=== PATIENT | male | born 1970 | race Caucasian/White ===

== ENCOUNTER 2017-01-26 10:24 | Emergency (ER) | payer OTHER ==
--- NOTE | 2017-01-26 10:35 | CPEKG ---
Heart Rate: 68 RR Interval: 882 P-R Interval: 156 QRSD Interval: 82 QT Interval: 360 QTC Interval: 383 P [place]: 40 QRS [place]: 36 T Wave [place]: 38 EKG Severity - ABNORMAL ECG - EKG Impression: SINUS RHYTHM EKG Impression: ST ELEVATION SUGGESTS PERICARDITIS Electronically Signed By: Reginaldo Atkins 26-Jan-2017 12:14:19
[2017-01-26] MEDS ORDERED: ASPIRIN 81 MG CHEWABLE TAB PO ONE (11:06)
--- NOTE | 2017-01-26 11:09 | EDPHY ---
H & P Stated Complaint: Numbness tingling left hand/ lightheaded - Personal History Current Tetanus/Diphtheria Vaccine: Yes Current Tetanus Diphtheria and Acellular Pertussis (TDAP): Yes - Medical/Surgical History Hx Asthma: No Hx Chronic Respiratory Disease: No Hx Diabetes: No Hx Cardiac Disease: No Hx Renal Disease: No Hx Cirrhosis: No Hx Alcoholism: No Hx HIV/AIDS: No Hx Splenectomy or Spleen Trauma: No - Social History Smoking Status: Never smoked Time Seen by Provider: 01/26/17 11:00 HPI/ROS: CHIEF COMPLAINT: chest pain, dizziness HISTORY OF PRESENT ILLNESS: 46-year-old male drove himself to the emergency department states that less than 1 hour ago while eating breakfast he onset diaphoresis, dizziness, chest pain, left arm pain which lasted approximately 5- 10 minutes and has by and large resolved although he continues to complain of mild dizziness. No slurred speech. No gait instability. No back pain. Patient notes increasing stress with recent divorce from his . PRIMARY CARE PROVIDER: [facility] in [place], [place] REVIEW OF SYSTEMS: A ten point review of systems was performed and is negative with the exception of the items mentioned in the HPI PAST MEDICAL & SURGICAL HISTORY: hypertension. No history of [place] . SOCIAL HISTORY: Nonsmoker. Works construction. No Drug use, no cocaine use PHYSICAL EXAM (Prior to examination, patient consented to physical exam, hands were washed and my usual and customary physical exam procedures followed) 1) GENERAL: obese, alert and oriented. Appears anxious . 2) HEAD: Normocephalic, atraumatic 3) HEENT: Pupils equal, round, reactive to light bilaterally. Sclera anicteric. 4) NECK: Full range of motion, no Bruit. 5) LUNGS: Clear auscultation bilaterally, 6) HEART: Regular rate and rhythm, no murmur, no heave, no gallop. 7) ABDOMEN: No guarding, no rebound, no focal tenderness, negative McBurney's, negative Mcclain's, negative Rovsing's, unable to elicit any abdominal pain 8) MUSCULOSKELETAL: Moving all extremities, no focal areas of tenderness, no obvious trauma. No peripheral edema or discoloration. 9) BACK: No CVA tenderness 10) SKIN: No rash, no petechiae. 11) Psychiatric: Patient is oriented X 3, there is no agitation. 12) NEURO: Awake, alert, and oriented to person, place and time. Answers questions appropriately. There were no obvious focal neurologic abnormalities. No cerebellar dysfunction. Normal steady gait. Upper and lower extremities bilaterally with strength 5 / 5, reflexes 2+. DIFFERENTIAL DIAGNOSIS: In no particular order, including but not limited to myocardial ischemia, pulmonary embolus, chest wall pain, pleural inflammation and pulmonary infectious causes. (Shayy Hoang) Constitutional: Initial Vital Signs Temperature (C) 36.9 C 01/26/17 10:26 Heart Rate 76 01/26/17 10:26 Respiratory Rate 14 01/26/17 10:26 Blood Pressure 158/86 H 01/26/17 10:26 O2 Sat (%) 96 01/26/17 10:26 O2 Delivery Mode Room Air Allergies/Adverse Reactions: No Known Allergies Allergy (Unverified 01/26/17 10:25) Home Medications: Medication Instructions Recorded Lisinopril 01/26/17 METOPROLOL-HCTZ 100-25 MG TAB 01/26/17 Medical Decision Making - Diagnostics EKG Interpretation: EKG: Complete interpretation has been separately recorded in the [employer] archive. Summary impression: Sinus rhythm, nonspecific mild ST segment elevation noted throughout all leads (Reginaldo Atkins) ED Course/Re-evaluation: 11:09 a.m.: Old medical records reviewed via [facility], discussed case with Dr Atkins at this time who evaluated patient at this time. 1:30 p.m.: I reviewed the patient's normal echo. Phone consultation with Zaida Gutierrez, Cardiology, plan will be in house treadmill testing at 2:15 p.m. today 2:58 p.m.: Patient back from treadmill testing. I spoke with nurse practitioner Zaida Gutierrez regarding his normal treadmill testing. Plan will be discharge as both I and Dr. Reginaldo Atkins think that acute cardiac etiology or injury is less than likely in the presence 2 normal troponins, normal echocardiography, normal treadmill testing. Doubt pulmonary embolus. Plan will be discharge. Given strict return precautions. Given my usual and customary discharge precautions and instructions. He feels comfortable being discharged. (Shayy Hoang) Other Provider: I evaluated and participated in the management of the patient. I also evaluated the patient independently. My co-signature indicates that I have reviewed this chart and I agree with the findings and plan of care as documented. My personal H&P findings include: Patient presents to the ED with flushing, diaphoresis and a brief episode of chest pain and left arm tingling. The patient reports intermittent history of the symptoms in the past. He does have a history of hypertension. The patient reports an unremarkable stress test and echocardiogram approximately 2 years ago. He currently is asymptomatic. Physical examination General Appearance: Alert, no distress Eyes: Pupils equal and round no pallor or injection ENT, Mouth: Mucous membranes moist Respiratory: There are no retractions, lungs are clear to auscultation Cardiovascular: Regular rate and rhythm Gastrointestinal: Abdomen is soft and nontender, no masses, bowel sounds normal Neurological: A&O, normal motor function, normal sensory exam, normal cranial nerves Skin: Warm and dry, no rashes Musculoskeletal: Neck is supple nontender Extremities: symmetrical, full range of motion Psychiatric: Patient is oriented X 3, there is no agitation Plan will be for serial cardiac enzymes in the emergency department and echocardiogram. Serial EKGs demonstrate no evidence of acute dynamic changes Consultation was made with Cardiology service. The patient will be taken for a treadmill stress test for further evaluation of his symptoms today. The patient did have an unremarkable echocardiogram. (Reginaldo Atkins) - Data Points Laboratory Results: Laboratory Results 01/26/17 10:38 01/26/17 10:38 01/26/17 01/26/17 01/26/17 13:40 10:38 10:38 WBC 6.36 10^3/uL 10^3/uL (3.80-9.50) RBC 6.51 10^6/uL H 10^6/uL (4.40-6.38) Hgb 16.1 g/dL g/dL (13.7-17.5) Hct 51.7 % H % (40.0-51.0) MCV 79.4 fL L fL (81.5-99.8) MCH 24.7 pg L pg (27.9-34.1) MCHC 31.1 g/dL L g/dL (32.4-36.7) RDW 17.0 % H % (11.5-15.2) Plt Count 256 10^3/uL 10^3/uL (150-400) MPV 11.0 fL fL (8.7-11.7) Neut % (Auto) 68.4 % % (39.3-74.2) Lymph % (Auto) 19.8 % % (15.0-45.0) [place] % (Auto) 9.4 % % (4.5-13.0) Eos % (Auto) 0.8 % % (0.6-7.6) Baso % (Auto) 0.8 % % (0.3-1.7) Nucleat RBC Rel Count 0.0 % % (0.0-0.2) Absolute Neuts (auto) 4.35 10^3/uL 10^3/uL (1.70-6.50) Absolute Lymphs (auto) 1.26 10^3/uL 10^3/uL (1.00-3.00) Absolute Monos (auto) 0.60 10^3/uL 10^3/uL (0.30-0.80) Absolute Eos (auto) 0.05 10^3/uL 10^3/uL (0.03-0.40) Absolute Basos (auto) 0.05 10^3/uL 10^3/uL (0.02-0.10) Absolute Nucleated RBC 0.00 10^3/uL 10^3/uL (0-0.01) Immature Gran % 0.8 % % (0.0-1.1) Immature Gran # 0.05 10^3/uL 10^3/uL (0.00-0.10) Sodium 138 mEq/L mEq/L (134-144) Potassium 4.6 mEq/L mEq/L (3.5-5.2) Chloride 103 mEq/L mEq/L (97-110) Carbon Dioxide 22 mEq/l mEq/l (22-31) Anion Gap 13 mEq/L mEq/L (8-16) BUN 11 mg/dL mg/dL (7-23) Creatinine 1.0 mg/dL mg/dL (0.7-1.3) Estimated GFR > 60 Glucose 112 mg/dL H mg/dL (70-100) Calcium 9.9 mg/dL mg/dL (8.5-10.4) Troponin I < 0.012 ng/mL ng/mL < 0.012 ng/mL ng/mL (0-0.034) (0-0.034) Medications Given: Discontinued Medications Aspirin (Aspirin) 324 mg PO EDNOW ONE Stop: 01/26/17 11:07 Last Admin: 01/26/17 12:04 Dose: 324 mg Departure - Departure Disposition: Home, Routine, Self-Care Clinical Impression: Dizziness Chest pain Qualifiers: Chest pain type: unspecified Qualified Code(s): R07.9 - Chest pain, unspecified Condition: Good Instructions: Angina (ED), Chest Pain (ED), Dizziness (ED) Additional Instructions: Call 911 if you developed chest pain, shortness of breath, dizziness, abdominal pain, nausea, vomiting, if you pass out, if you have a sensation of passing out , or any other symptoms that concern you Referrals: DIOGO STOCKTON [Primary Care Provider] - 1-2 days without fail
[2017-01-26 11:11] LABS: % IMMATURE GRANULYOCYTES 0.8 % (0.0-1.1); ABSOLUTE IMMATURE GRANULOCYTES 0.05 10^3/uL (0.00-0.10); ADD DIFF? NO; ADD MORPH? NO; ADD SCAN? NO; ATYPICAL LYMPHOCYTE FLAG 80 (0-99); FRAGMENT RBC FLAG 20 (0-99); HEMATOCRIT 51.7 % (40.0-51.0); HEMOGLOBIN 16.1 g/dL (13.7-17.5); LEFT SHIFT FLG 0 (0-99); LIPEMIA HEMOLYSIS FLAG 80 (0-99); MEAN CELL HEMOGLOBIN 24.7 pg (27.9-34.1); MEAN CELL HEMOGLOBIN CONCENTR. 31.1 g/dL (32.4-36.7); MEAN CELL VOLUME 79.4 fL (81.5-99.8); PLATELET CLUMPS FLAG 10 (0-99); PLATELET COUNT 256 10^3/uL (150-400); RED BLOOD CELL COUNT 6.51 10^6/uL (4.40-6.38)
[2017-01-26 11:38] LABS: ANION GAP 13 mEq/L (8-16); CALCIUM 9.9 mg/dL (8.5-10.4); CARBON DIOXIDE 22 mEq/l (22-31); CHLORIDE 103 mEq/L (97-110); GLOMERULAR FILTRATION RATE > 60; GLUCOSE 112 mg/dL (70-100); POTASSIUM 4.6 mEq/L (3.5-5.2); SODIUM 138 mEq/L (134-144)
[2017-01-26 11:48] LABS: TROPONIN I < 0.012 ng/mL (0-0.034)
--- NOTE | 2017-01-26 12:14 | ECHO ---
[id number] + + [address] : : [place] [address] : : [phone] + Adult Echocardiographic Report + -+ :Name: FOREIGN LEIVAparker Date: 01/26/2017 11:29 AM BP: 153/83 mmHg : : Hospital Admission Number: [id number] Location: R: :: 1970 Gender: Male Height: 71 in : :Age: 46 yrs Race: WH Weight: 260 lb : : : : BSA: 2.4 meters2 : :History: left chest pain, dyspnea : + -+ MMode/2D Measurements \T\ Calculations IVSd: 0.97 cm RVDd: 3.7 cm FS: 35.7 % Ao root diam: LVPWd: 1.1 cm LVIDd: 4.7 cm EDV(Teich): 3.2 cm LVIDs: 3.0 cm 99.8 ml ESV(Teich): 34.7 ml EF(Teich): 65.2 % LVLd ap4: 10.0 cm SV(MOD-sp4): EDV(MOD-sp4): 131.0 ml 201.0 ml LVLs ap4: 8.5 cm ESV(MOD-sp4): 70.0 ml EF(MOD-sp4): 65.2 % Normal Measurement Values: + + :LVIDd (3.5-5.7cm) IVSd (0.6-1.1cm) LVPWd (0.6-1.1cm) Aortic Root (2.0-3.7cm)Left Atrium (1.5-4.0cm): :LV Vol(d) (76-115ml) LV Vol(s) (29-48ml) Ejec Fraction (50-65%)PV Ortiz (0.6- 1.2m/s) TV Ortiz (0.4-1.0m/s) : :MV E Ortiz (0.8-1.0m/s)MV A Ortiz (0.3-1.0m/s)LVOT Ortiz (0.7-1.2m/s) Asc Ao Ortiz ( 0.9-1.8m/s) : + + Doppler Measurements \T\ Calculations MV E max ortiz: Ao V2 max: LV V1 max: PA V2 max: 74.5 cm/sec 185.0 cm/sec 143.0 cm/sec 119.0 cm/sec MV A max ortiz: Ao max PG: LV V1 max PG: PA max P.3 cm/sec 13.7 mmHg 8.2 mmHg 5.7 mmHg MV E/A: 1.4 MV dec time: 0.21 sec RAP systole: 5.0 mmHg Left Ventricle The left ventricle is normal in size and function. There is normal left ventricular wall thickness. Ejection Fraction = 70%. No regional wall motion abnormalities noted. Right Ventricle The right ventricle is normal in size and function. Atria The left atrial size is normal. Right atrial size is normal. Mitral Valve The mitral valve is normal in structure and function. There is no mitral valve stenosis. There is trace mitral regurgitation. Tricuspid Valve The tricuspid valve is normal in structure and function. There is no tricuspid stenosis. There is trace to mild tricuspid regurgitation. Aortic Valve The aortic valve is normal in structure and function. There is no aortic stenosis. There is no aortic insufficiency. Pulmonic Valve The pulmonic valve is not well visualized. Great Vessels The aortic root is not well visualized. Pericardium/Pleural There is no pericardial effusion. Conclusion A two-dimensional transthoracic echocardiogram with M-mode and Doppler was performed. The left ventricle is normal in size and function. Ejection Fraction = 70%. Normal wall motion. Normal appearing cardiac valves. There is trace mitral regurgitation. There is trace to mild tricuspid regurgitation. Final Reading Physician: Cathie Adam signed on 01/26/2017 12:12 PM Ordering Physician: Shayy Hoang Performed By: Merlyn Elkins
--- NOTE | 2017-01-26 13:42 | CPEKG ---
Heart Rate: 59 RR Interval: 1017 P-R Interval: 156 QRSD Interval: 84 QT Interval: 384 QTC Interval: 381 P [place]: 34 QRS [place]: 29 T Wave [place]: 39 EKG Severity - ABNORMAL ECG - EKG Impression: SINUS RHYTHM EKG Impression: ST ELEVATION SUGGESTS PERICARDITIS Electronically Signed By: Reginaldo Atkins 26-Jan-2017 14:15:30
--- NOTE | 2017-01-26 15:05 | CPR ---
[f rep st] NONINVASIVE CARDIAC PROCEDURE REPORT DATE OF PROCEDURE: 01/26/2017 REASON FOR TEST: 1. Chest pain. 2. Hypertension. His grandmother has a history of heart disease with CABG. He denies hypercholesterolemia. He quit smoking 12 years ago. FINDINGS: Resting EKG shows a regular sinus rhythm with no ectopy. No ischemic changes noted. Resting blood pressure 162/92. Resting heart rate 66. EXERCISE PORTION: He was exercised according to the [facility] protocol for a total of 9 minutes. His peak blood pressure was 212/84. Peak heart rate 127. Met level reached 10.2. He is taking metoprolol and had it this morning, ceiling his heart rate. This was a maximal effort treadmill stress test. He had an underlying constant chest discomfort rated 1-2 on a 10 point scale. This did not change during the time he started the treadmill, to the conclusion. RECOVERY: He did spontaneously recover with his blood pressure after 5 minutes coming down to 184/90, heart rate 87. There was no ectopy or ischemic changes. SUMMARY: This is a normal exercise treadmill stress test. He did reach maximal effort. Heart rate ceiling due to beta blockade taken this morning, positive for exercise-induced hypertension. He recovered spontaneously. He is stable to return to his room in the emergency department. /[id number]/MODL MTDD
[2017-01-26 15:36] VITALS: BP 156/96; PULSE 67; RESP 16; TEMP 99.1; O2SAT 94
== END 2017-01-26 15:35 | disposition home or self-care (01) ==
DX: R42 Dizziness and giddiness (principal); R07.9 Chest pain, unspecified; I10 Essential (primary) hypertension